=== PATIENT | female | born 1960 | race Caucasian/White ===

== ENCOUNTER → 2022-04-15 10:04 | Outpatient (BNVA) | payer BC, SELFPAY | PROVIDERS: PCP Internal Medicine; Visit Provider Nurse Practitioner Family | DX: Z13.89 Encounter for screening for other disorder (principal) ==

== ENCOUNTER 2022-10-12 14:01 | Outpatient (AMB) | payer BC, SELFPAY ==
--- NOTE | 2022-10-12 14:05 | MHC.OFFVIS ---
Intake Vital Signs 10/12/22 14:18 Height 5 ft 5 in BP 110/72 Blood Pressure Location Rt brachial Position Sitting Intake Visit Reasons: 3m follow up migraines - Confirmed Intake Note: Patient presents for 3 month follow up migraines. Patient states I haven't seen any difference my pressure is still there, sometimes I cant even touch my head. the Diclofenac helps better that the indometyhacin Allergies bacitracin [From Neosporin ([id number]-nde-npofi)] Allergy (Unknown, Verified 10/12/22 14:17) Unknown neomycin [From Neosporin ([id number])] Allergy (Unknown, Verified 10/12/22 14:17) Unknown polymyxin B [From Neosporin (jnn-clj-tzlrh)] Allergy (Unknown, Verified 10/12/22 14:17) Unknown Sulfa (Sulfonamide Antibiotics) Allergy (Unknown, Verified 10/12/22 14:17) Unknown sulfadiazine Allergy (Unknown, Verified 10/12/22 14:17) Unknown adhesive Adverse Reaction (Unknown, Verified 10/12/22 14:17) Unknown Medication List - Last Reconciled 10/12/22 by CLIFTON Silvestre albuterol sulfate 90 mcg/actuation 0 mcg inhalation alprazolam 1 mg PO BID PRN 1 day amitriptyline 100 mg PO BEDTIME budesonide-formoterol 160-4.5 mcg/actuation 2 puffs inhalation BID sehhcwdesg-icxvxfleargnn-yvvg 50-300-40 mg caps PO PRN carisoprodol 350 mg PO PRN cyclobenzaprine 5 mg PO DAILY PRN cyclosporine 0.05% (Restasis) 1 drp ophthalmic (eye) Q12H diclofenac potassium 50 mg PO TID PRN 30 days escitalopram oxalate 5 mg PO DAILY [hair volume with apple extract PO DAILY] indomethacin 50 mg PO TID PRN 30 days lorazepam 1 mg PO BID PRN magnesium oxide 400 mg PO DAILY melatonin 3 mg PO BEDTIME methocarbamol 750 - 1,500 mg PO TID PRN naproxen 500 mg PO BID PRN onabotulinumtoxinA (Botox) 200 units IM ONCE 12 weeks ondansetron 8 mg PO Q8H PRN 30 days ondansetron HCl 4 mg PO BID PRN oxycodone 5 mg PO BID PRN pantoprazole 40 mg PO DAILY riboflavin (vitamin B2) 400 mg PO DAILY simvastatin 20 mg PO BEDTIME tizanidine (Zanaflex) 4 mg PO DAILY PRN tramadol 50 mg PO BID PRN HPI HPI Comments History of Present Illness Details 62-yr-old female presents for f/u visit. Pt denies any significant interval medical changes. She reports she is having a lot of headache. 12-15 mild-mod migraine days w/ left > right pressure, or top of head, a/w some photo/phonophobia. 5 severe migraine attacks per month 5 stabbing headache days, 98% of the time left sided, 2% right sided. Using Diclofenac 1-2 x's per day on stabbing headache days. This seems more effective than Indocin 50mg. She never took the Indocin scheduled. She is using Fioricet and zofran prn severe migraine. She did not start Botox- was concerned about cost, but would like to try it now. [facility] Medical History (Updated 06/28/22 @ 13:31 by CLIFTON Silvestre) Anemia Arthritis Asthma COPD (chronic obstructive pulmonary disease) HLD (hyperlipidemia) Osteoporosis Paresthesias Surgical History H/O left wrist surgery H/O: hysterectomy Hx of appendectomy Hx of cholecystectomy Family History Paternal Aunt Parkinsons disease Father Heart disease Mother Heart disease Hypertension Social History Alcohol intake: current Alcohol intake frequency: holidays/special occasions only Patient Tobacco Use Status: Current everyday Tobacco user Review of Systems Const All systems reviewed & are unremarkable except as noted in HPI and below Physical Exam Vital Signs: Last Vital Signs BP 110/72 10/12/22 14:18 Const General: cooperative and no acute distress Orientation/consciousness: patient oriented x3 HEENT Head: Yes normocephalic Resp Effort & Inspection: normal respiratory effort and able to speak in complete sentences Neuro General: patient oriented x3, gait normal and CN's II-XI intact bilaterally Cognition (Neuro): normal cognition Motor exam (neuro): 5/5 motor strength present throughout Psych Appearance: grossly normal Mental Status: mental status grossly normal Speech and movement: Normal speech and movement present Affect: normal affect Attitude: cooperative Thought process: Normal thought process present Thought content: Normal thought content present Insight: Good insight present (Psych) Judgement: Good judgement present (Psych) Assessment & Plan Assessment & Plan (1) Stabbing headache: Comment: w/o autonomic s/s Code(s): G44.85 - Primary stabbing headache (2) Chronic migraine without aura: Code(s): G43.709 - Chronic migraine without aura, not intractable, without status migrainosus Plan For stabbing headache: Brain/head MRA was denied, will rerequest as brain MRI did not reveal any etiologies that would cause a primarily unilateral stabbing headache, to assess for any central etiologies (such as vascular, cranial nerve compression) of stabbing headache. Continue Diclofenac 50mg up to tid prn. For acute migraine headache treatment: May continue Fioricet prn for now- use sparingly. Continue Zofran to 8mg ODT prn N?V May adjunct w/ Benadryl 25-50mg q 6-8hrs prn. Pt previoulsy requested Fioicet w/ Codeine- however I am not comfortable resuming this as it would significantly increase pt's risk for medication adaptation headache. Previous acute migraine medication trials: Sumatriptan, Zolmitriptan, Eletriptan- caused racing heart rate. Acute migraine medication contraindications: None at this time. Future considerations- gepant- however would need to wean off Fioricet. ? For migraine headache prevention medication: Continue Riboflavin 400mg qam Continue Magnesium 400mg qhs Continue Amitriptyline 100mg qhs. Pt is advised to start Botox 155 units IM q 12 weeks. (CPT 33338) Previous migraine prevention medication trials: Emgality- x's 2 months- had 2 week post-injection headache. Topiramate, Propranolol, Depakote, Gabapentin- ineffective. Nortriptyline worsened headache. Migraine prevention medication contraindications: Would avoid Aimovig d/t h/o constipation. ? Monitor tremors clinically for now. ? F/u in 3-4 months or sooner prn. Coding Level of Care Code Est Pt Level 4 (39666) Diagnoses Stabbing headache G44.85 Chronic migraine without aura G43.709
[2022-10-12 14:18] VITALS: BP 110/72
== END 2022-10-12 15:02 | disposition home or self-care (01) ==
PROVIDERS: Visit Provider Nurse Practitioner Family
DX: G44.85 Primary stabbing headache (principal); G43.709 Chronic migraine without aura, not intractable, without status migrainosus
CPT/HCPCS: 99214

== ENCOUNTER 2022-11-01 12:59 | Outpatient (AMB) | payer BC, SELFPAY ==
--- NOTE | 2022-11-01 13:06 | MHC.OFFVIS ---
Intake Vital Signs 11/01/22 13:07 Height 5 ft 5 in Weight 104 lb 6 oz BMI 17.4 BP 98/70 Blood Pressure Location Rt brachial Position Sitting Pulse 100 Pulse Source Pulse Oximeter Pulse Oximetry (%) 98 Oxygen Delivery Method Room Air Intake Visit Reasons: Botox (B&B)-CONFIRMED Intake Note: Pt is here today for botox for migraines Allergies bacitracin [From Neosporin ([id number]-[id number])] Allergy (Unknown, Verified 11/01/22 13:10) Unknown neomycin [From Neosporin ([id number]-kwm-grdwm)] Allergy (Unknown, Verified 11/01/22 13:10) Unknown polymyxin B [From Neosporin (ert-pij-lrron)] Allergy (Unknown, Verified 11/01/22 13:10) Unknown Sulfa (Sulfonamide Antibiotics) Allergy (Unknown, Verified 11/01/22 13:10) Unknown sulfadiazine Allergy (Unknown, Verified 11/01/22 13:10) Unknown adhesive Adverse Reaction (Unknown, Verified 11/01/22 13:10) Unknown Medication List - Last Reconciled 11/01/22 by Hanna Garcia MD albuterol sulfate 90 mcg/actuation 0 mcg inhalation alprazolam 1 mg PO BID PRN 1 day amitriptyline 100 mg PO BEDTIME budesonide-formoterol 160-4.5 mcg/actuation 2 puffs inhalation BID gtaaepypec-tthsslocqfvoy-myhh 50-300-40 mg caps PO PRN carisoprodol 350 mg PO PRN cyclobenzaprine 5 mg PO DAILY PRN cyclosporine 0.05% (Restasis) 1 drp ophthalmic (eye) Q12H diclofenac potassium 50 mg PO TID PRN 30 days escitalopram oxalate 5 mg PO DAILY [hair volume with apple extract PO DAILY] indomethacin 50 mg PO TID PRN 30 days lorazepam 1 mg PO BID PRN magnesium oxide 400 mg PO DAILY melatonin 3 mg PO BEDTIME methocarbamol 750 - 1,500 mg PO TID PRN naproxen 500 mg PO BID PRN onabotulinumtoxinA (Botox) 200 units IM ONCE 12 weeks ondansetron 8 mg PO Q8H PRN 30 days ondansetron HCl 4 mg PO BID PRN oxycodone 5 mg PO BID PRN pantoprazole 40 mg PO DAILY riboflavin (vitamin B2) 400 mg PO DAILY simvastatin 20 mg PO BEDTIME tizanidine (Zanaflex) 4 mg PO DAILY PRN tramadol 50 mg PO BID PRN HPI HPI Comments History of Present Illness Details ? 62y/o female comes for treatment of migraines with botox. ??? Most frequent reported adverse reactions following injection of botox for chronic migraine include neck pain (9%), headache(5%), eyelid ptosis(4%), migraine(4%), muscular weakness(4%), musculuskeletal stiffness(4%), bronchitis(3%), injection site pain (3%), musculoskeletal pain(3%), myalgia(3%), facial paresis(2%), HTN(2%) and muscle spasms(2%) were discussed in detail. ??? Botulinum toxin typeA 200units Lot no [id number] expiration Mar 2025 was diluted with 4 cc of normal saline . ??? Muscles injected- ??? Frontalis 4 sites ??? Procerus 1 site ??? Exhaust Machine Operator- 2 sites ??? Temporalis- 8 sites ??? Occipitalis- 6 sites ??? Cervical paraspinals- 4 sites ??? Trapezius- 6 sites- units each ??? 5 units each in 31 site ??? Total use- 155units ??? Discarded-45units [facility] Medical History Arthritis HLD (hyperlipidemia) Osteoporosis Asthma COPD (chronic obstructive pulmonary disease) Anemia Paresthesias Surgical History H/O left wrist surgery H/O: hysterectomy Hx of cholecystectomy Hx of appendectomy Family History Paternal Aunt Parkinsons disease Father Heart disease Mother Heart disease Hypertension Social History Alcohol intake: current Alcohol intake frequency: holidays/special occasions only Patient Tobacco Use Status: Current everyday Tobacco user Physical Exam Vital Signs: Last Vital Signs Pulse 100 11/01/22 13:07 BP 98/70 11/01/22 13:07 Pulse Ox 98 11/01/22 13:07 Oxygen Delivery Method Room Air 11/01/22 13:07 BMI result Body Mass Index 17.4 Const General: cooperative and no acute distress Orientation/consciousness: patient oriented x3 HEENT Head: Yes normocephalic Resp Effort & Inspection: normal respiratory effort and able to speak in complete sentences Neuro General: patient oriented x3, gait normal and CN's II-XI intact bilaterally Cognition (Neuro): normal cognition Motor exam (neuro): 5/5 motor strength present throughout Psych Appearance: grossly normal Mental Status: mental status grossly normal Speech and movement: Normal speech and movement present Affect: normal affect Attitude: cooperative Thought process: Normal thought process present Thought content: Normal thought content present Insight: Good insight present (Psych) Judgement: Good judgement present (Psych) Office Procedures Botulinum toxin Injection 26469 - Migraine Procedure code (CPT) selection complete Office Meds onabotulinumtoxinA 200 unit solution for injection Performing Provider: Hanna Garcia MD Performing Location: [facility] [place] Administered by: Hanna Garcia MD on 11/01/22 13:33 Dose Route Admin Location Dispensed Lot Number Expiration Date [facility] [employer] 155 unit subcut 200 units [id number] 03/16/25 5251-0672-82 [employer]/BOTOX Comments: see hpi Assessment & Plan Assessment & Plan (1) Chronic migraine without aura: Code(s): G43.709 - Chronic migraine without aura, not intractable, without status migrainosus Plan Patient tolerated the procedure well she will call with any side effects Orders: Orders AMB Botulinum toxin Injection Today G43.709 - Chronic migraine without aura, not intractable, without status migrainosus Coding Level of Care Code Est Pt Level 1 (23506) Diagnoses Chronic migraine without aura G43.709 CPT Codes Botox Injection - Botox 3: 42467 - Migraine ([id number])
[2022-11-01 13:07] VITALS: BP 98/70; PULSE 100; O2SAT 98; BMI 17.4
== END 2022-11-01 13:25 | disposition home or self-care (01) ==
PROVIDERS: PCP Internal Medicine; Visit Provider Psychiatry & Neurology Neurology
DX: G43.709 Chronic migraine without aura, not intractable, without status migrainosus (principal)
CPT/HCPCS: 64615

== ENCOUNTER → 2022-11-01 12:59 | Outpatient (BNVA) | payer BC, SELFPAY | PROVIDERS: PCP Internal Medicine; Visit Provider Psychiatry & Neurology Neurology | DX: G43.709 Chronic migraine without aura, not intractable, without status migrainosus (principal) | CPT/HCPCS: 64615; 99211; J0585 ==

== ENCOUNTER 2023-01-25 14:02 | Outpatient (AMB) | payer BC, SELFPAY ==
--- NOTE | 2023-01-25 14:04 | MHC.OFFVIS ---
Intake Vital Signs 01/25/23 14:05 Height 5 ft 5 in Weight 112 lb 4 oz BMI 18.7 BP 102/70 Blood Pressure Location Rt brachial Position Sitting Pulse 87 Pulse Source Pulse Oximeter Pulse Oximetry (%) 99 Oxygen Delivery Method Room Air Intake Visit Reasons: 3m follow up migraines-Confirmed Intake Note: Patient presents for 3 month follow up migraines. The botox has been a blessing Allergies bacitracin [From Neosporin ([id number]-wyo-[id number])] Allergy (Unknown, Verified 01/25/23 14:06) Unknown neomycin [From Neosporin (jvt-ypn-ffxqe)] Allergy (Unknown, Verified 01/25/23 14:06) Unknown polymyxin B [From Neosporin (rbi-ypi-lofsv)] Allergy (Unknown, Verified 01/25/23 14:06) Unknown Sulfa (Sulfonamide Antibiotics) Allergy (Unknown, Verified 01/25/23 14:06) Unknown sulfadiazine Allergy (Unknown, Verified 01/25/23 14:06) Unknown adhesive Adverse Reaction (Unknown, Verified 01/25/23 14:06) Unknown Medication List - Last Reconciled 01/25/23 by CLIFTON Silvestre albuterol sulfate 90 mcg/actuation 0 mcg inhalation alprazolam 1 mg PO BID PRN 1 day amitriptyline 100 mg PO BEDTIME budesonide-formoterol 160-4.5 mcg/actuation 2 puffs inhalation BID naveqqjpgy-uprspllkrljph-ovxb 50-300-40 mg caps PO PRN carisoprodol 350 mg PO PRN cyclobenzaprine 5 mg PO DAILY PRN cyclosporine 0.05% (Restasis) 1 drp ophthalmic (eye) Q12H diclofenac potassium 50 mg PO TID PRN 30 days escitalopram oxalate 5 mg PO DAILY [hair volume with apple extract PO DAILY] indomethacin 50 mg PO TID PRN 30 days lorazepam 1 mg PO BID PRN magnesium oxide 400 mg PO DAILY melatonin 3 mg PO BEDTIME methocarbamol 750 - 1,500 mg PO TID PRN naproxen 500 mg PO BID PRN onabotulinumtoxinA (Botox) 200 units IM ONCE 12 weeks ondansetron 8 mg PO Q8H PRN 30 days ondansetron HCl 4 mg PO BID PRN oxycodone 5 mg PO BID PRN pantoprazole 40 mg PO DAILY riboflavin (vitamin B2) 400 mg PO DAILY simvastatin 20 mg PO BEDTIME tizanidine (Zanaflex) 4 mg PO DAILY PRN tramadol 50 mg PO BID PRN HPI HPI Comments History of Present Illness Details 62-yr-old female presents for f/u visit. Pt endorses the following interval medical history changes: A Covid-19 infection in early fall- since her sense of taste is still off and she still feel some brain fog. Prior to starting Botox for chronic migraine: Approx 8 migraine days per month with 20 pressure headache/stabbing headaches day per month. Since starting Botox in Sep: She is having less migraines overall. She has had 1-2 migraine days per month. Pt reports she had 1 major migraine last month- though not a/w vomiting- where she needed to take 4 Fioricet in 1 day. She continues to have stabbing/pressure headaches- now 4-5 times a week. The stabbing/pressure headache is in left parietal region 85% of the time, but right parietal the other 15%- it usually lasts 30 seconds may come and go a few times and as long as 2 days- more rarely is persists constantly x's 2 days. Possibly triggered by doing cross stitch, dry eyes, light/prism exposure especially from 1 of her household door windows. She finds the Diclofenac to be more helpful for these mores pressure/stabbing headache. Using her Restasis, and eye drops. The Indomethacin was not as helpful. [facility] Medical History Arthritis HLD (hyperlipidemia) Osteoporosis Asthma COPD (chronic obstructive pulmonary disease) Anemia Paresthesias Surgical History H/O left wrist surgery H/O: hysterectomy Hx of cholecystectomy Hx of appendectomy Family History Paternal Aunt Parkinsons disease Father Heart disease Mother Heart disease Hypertension Social History Alcohol intake: current Alcohol intake frequency: holidays/special occasions only Patient Tobacco Use Status: Current everyday Tobacco user Review of Systems Const All systems reviewed & are unremarkable except as noted in HPI and below Physical Exam Vital Signs: Last Vital Signs Pulse 87 01/25/23 14:05 BP 102/70 01/25/23 14:05 Pulse Ox 99 01/25/23 14:05 Oxygen Delivery Method Room Air 01/25/23 14:05 BMI result Body Mass Index 18.7 Const General: cooperative and no acute distress Orientation/consciousness: patient oriented x3 HEENT Head: Yes normocephalic Resp Effort & Inspection: normal respiratory effort and able to speak in complete sentences Neuro General: patient oriented x3, gait normal and CN's II-XI intact bilaterally Cognition (Neuro): normal cognition Motor exam (neuro): 5/5 motor strength present throughout Psych Appearance: grossly normal Mental Status: mental status grossly normal Speech and movement: Normal speech and movement present Affect: normal affect Attitude: cooperative Thought process: Normal thought process present Thought content: Normal thought content present Insight: Good insight present (Psych) Judgement: Good judgement present (Psych) Assessment & Plan Assessment & Plan (1) Stabbing headache: Comment: w/o autonomic s/s Code(s): G44.85 - Primary stabbing headache (2) HLD (hyperlipidemia): Code(s): E78.5 - Hyperlipidemia, unspecified (3) Chronic migraine without aura: Code(s): G43.709 - Chronic migraine without aura, not intractable, without status migrainosus Plan For stabbing headache: Brain/head MRA. will request as brain MRI did not reveal any etiologies that would cause a primarily unilateral stabbing headache, to assess for any central etiologies (such as vascular, cranial nerve compression) of stabbing headache. Continue Diclofenac 50mg up to tid prn. For acute migraine headache treatment: May continue Fioricet prn for now- use sparingly. Continue Zofran to 8mg ODT prn N?V May adjunct w/ Benadryl 25-50mg q 6-8hrs prn. Pt previoulsy requested Fioicet w/ Codeine- however I am not comfortable resuming this as it would significantly increase pt's risk for medication adaptation headache. Previous acute migraine medication trials: Sumatriptan, Zolmitriptan, Eletriptan- caused racing heart rate. Acute migraine medication contraindications: None at this time. Future considerations- gepant- however would need to wean off Fioricet. ? For migraine headache prevention medication: Continue Riboflavin 400mg qam Continue Magnesium 400mg qhs Continue Amitriptyline 100mg qhs. Continue Botox 155 units IM q 12 weeks (CPT 13485), as pt is already having good clinical effect. Previous migraine prevention medication trials: Emgality- x's 2 months- had 2 week post-injection headache. Topiramate, Propranolol, Depakote, Gabapentin- ineffective. Nortriptyline worsened headache. Migraine prevention medication contraindications: Would avoid Aimovig d/t h/o constipation. ? Monitor tremors clinically for now. ? F/u in 3-4 months or sooner prn. Orders: Orders MR angio head wo con Today E78.5 - Hyperlipidemia, unspecified, G44.85 - Primary stabbing headache, Z72.0 - Tobacco use Coding Level of Care Code Est Pt Level 4 (95814) Diagnoses Stabbing headache G44.85 HLD (hyperlipidemia) E78.5 Chronic migraine without aura G43.703
[2023-01-25 14:05] VITALS: BP 102/70; PULSE 87; O2SAT 99; BMI 18.7
== END 2023-01-25 14:59 | disposition home or self-care (01) ==
PROVIDERS: PCP Internal Medicine; Visit Provider Nurse Practitioner Family
DX: G44.85 Primary stabbing headache (principal); E78.5 Hyperlipidemia, unspecified; G43.709 Chronic migraine without aura, not intractable, without status migrainosus
CPT/HCPCS: 99214

== ENCOUNTER 2023-02-01 10:54 | Outpatient (AMB) | payer BC, SELFPAY ==
--- NOTE | 2023-02-01 10:59 | A.OFFVIS_ITS ---
Intake Vital Signs 02/01/23 11:00 Height 5 ft 5 in Weight 111 lb 8 oz BMI 18.6 BP 112/68 Blood Pressure Location Lt brachial Position Sitting Respiration 18 Pulse 91 Pulse Source Pulse Oximeter Pulse Oximetry (%) 98 Oxygen Delivery Method Room Air Intake Visit Reasons: Botox (B&B)-Confirmed Intake Note: Pt presents to the office for Botox injections. Preschool Director Required: No Allergies bacitracin [From Neosporin (akt-wah-kowej)] Allergy (Unknown, Verified 02/01/23 11:00) Unknown neomycin [From Neosporin (kaz-rcx-btnyo)] Allergy (Unknown, Verified 02/01/23 11:00) Unknown polymyxin B [From Neosporin (uhs-yiu-yduhs)] Allergy (Unknown, Verified 02/01/23 11:00) Unknown Sulfa (Sulfonamide Antibiotics) Allergy (Unknown, Verified 02/01/23 11:00) Unknown sulfadiazine Allergy (Unknown, Verified 02/01/23 11:00) Unknown adhesive Adverse Reaction (Unknown, Verified 02/01/23 11:00) Unknown Medication List - Last Reconciled 02/02/23 by Hanna Garcia MD albuterol sulfate 90 mcg/actuation 0 mcg inhalation alprazolam 1 mg PO BID PRN 1 day amitriptyline 100 mg PO BEDTIME budesonide-formoterol 160-4.5 mcg/actuation 2 puffs inhalation BID tmsjiljwll-ioqifktlgpdop-kbgn 50-300-40 mg caps PO PRN carisoprodol 350 mg PO PRN cyclobenzaprine 5 mg PO DAILY PRN cyclosporine 0.05% (Restasis) 1 drp ophthalmic (eye) Q12H diclofenac potassium 50 mg PO TID PRN 30 days escitalopram oxalate 5 mg PO DAILY [hair volume with apple extract PO DAILY] indomethacin 50 mg PO TID PRN 30 days lorazepam 1 mg PO BID PRN magnesium oxide 400 mg PO DAILY melatonin 3 mg PO BEDTIME methocarbamol 750 - 1,500 mg PO TID PRN naproxen 500 mg PO BID PRN onabotulinumtoxinA (Botox) 200 units IM ONCE 12 weeks ondansetron 8 mg PO Q8H PRN 30 days ondansetron HCl 4 mg PO BID PRN oxycodone 5 mg PO BID PRN pantoprazole 40 mg PO DAILY riboflavin (vitamin B2) 400 mg PO DAILY simvastatin 20 mg PO BEDTIME tizanidine (Zanaflex) 4 mg PO DAILY PRN tramadol 50 mg PO BID PRN HPI HPI Comments History of Present Illness Details ? 62y/o female comes for treatment of migraines with botox. How many migraine days prior to botox- 20 days a month How long do the migraines last- 1-2 days Intensity of migrainesevere 8-10/23 ER visits related to migraine- none Effectiveness of botox from last two treatment(s) How many migraine days since receiving treatment: Change? in intensity of migraine?decreased Change in frequency of migraine?decreased Change in use of acute medication for migraine?decreased use Change in quality of life?improved ER visits related to migraine?none Have at least three months elapsed since last treatment (Last botox date - frequency of injections)11/01/22 ??? Most frequent reported adverse reactions following injection of botox for chronic migraine include neck pain (9%), headache(5%), eyelid ptosis(4%), migraine(4%), muscular weakness(4%), musculuskeletal stiffness(4%), bronchitis(3%), injection site pain (3%), musculoskeletal pain(3%), myalgia(3%), facial paresis(2%), HTN(2%) and muscle spasms(2%) were discussed in detail. ??? Botulinum toxin typeA 200units Lot no [id number] expiration May 2025 was diluted with 4 cc of normal saline . ??? Muscles injected- ??? Frontalis 4 sites ??? Procerus 1 site ??? Dispatcher Street Department- 2 sites ??? Temporalis- 8 sites ??? Occipitalis- 6 sites ??? Cervical paraspinals- 4 sites ??? Trapezius- 6 sites- units each ??? 5 units each in 31 site ??? Total use- 155units ??? Discarded-45units [facility] Medical History Arthritis HLD (hyperlipidemia) Osteoporosis Asthma COPD (chronic obstructive pulmonary disease) Anemia Paresthesias Surgical History H/O left wrist surgery H/O: hysterectomy Hx of cholecystectomy Hx of appendectomy Family History Paternal Aunt Parkinsons disease Father Heart disease Mother Heart disease Hypertension Social History Alcohol intake: current Alcohol intake frequency: holidays/special occasions only Patient Tobacco Use Status: Current everyday Tobacco user Physical Exam Vital Signs: Last Vital Signs Pulse 91 02/01/23 11:00 Resp 18 02/01/23 11:00 BP 112/68 02/01/23 11:00 Pulse Ox 98 02/01/23 11:00 Oxygen Delivery Method Room Air 02/01/23 11:00 BMI result Body Mass Index 18.6 Const General: cooperative and no acute distress Orientation/consciousness: patient oriented x3 HEENT Head: Yes normocephalic Resp Effort & Inspection: normal respiratory effort and able to speak in complete sentences Neuro General: patient oriented x3, gait normal and CN's II-XI intact bilaterally Cognition (Neuro): normal cognition Motor exam (neuro): 5/5 motor strength present throughout Psych Appearance: grossly normal Mental Status: mental status grossly normal Speech and movement: Normal speech and movement present Affect: normal affect Attitude: cooperative Thought process: Normal thought process present Thought content: Normal thought content present Insight: Good insight present (Psych) Judgement: Good judgement present (Psych) Office Procedures Botulinum toxin Injection 58426 - Migraine Procedure code (CPT) selection complete Office Meds onabotulinumtoxinA 200 unit solution for injection Performing Provider: Hanna Garcia MD Performing Location: [facility] [place] [facility] Administered by: Hanna Garcia MD on 02/02/23 15:58 Dose Route Admin Location Dispensed Lot Number Expiration Date [facility] Entry Level Truck Driver 155 unit IM 200 units [id number] 05/14/25 3595-5205-70 ALLERGAN/BOTOX Comments: see HPI Assessment & Plan Assessment & Plan (1) Chronic migraine without aura: Code(s): G43.709 - Chronic migraine without aura, not intractable, without status migrainosus Plan Patient tolerated the procedure well she will call with any side effects Orders: Orders AMB Botulinum toxin Injection 02/01/23 G43.709 - Chronic migraine without aura, not intractable, without status migrainosus Coding Level of Care Code Est Pt Level 1 (42669) Diagnoses Chronic migraine without aura G43.709 CPT Codes Botox Injection - Botox 3: 66642 - Migraine ([id number])
[2023-02-01 11:00] VITALS: BP 112/68; PULSE 91; RESP 18; O2SAT 98; BMI 18.6
== END 2023-02-01 11:17 | disposition home or self-care (01) ==
PROVIDERS: PCP Internal Medicine; Visit Provider Psychiatry & Neurology Neurology
DX: G43.709 Chronic migraine without aura, not intractable, without status migrainosus (principal)
CPT/HCPCS: 64615

== ENCOUNTER → 2023-02-01 10:54 | Outpatient (BNVA) | payer BC, SELFPAY | PROVIDERS: PCP Internal Medicine; Visit Provider Psychiatry & Neurology Neurology | DX: G43.709 Chronic migraine without aura, not intractable, without status migrainosus (principal) | CPT/HCPCS: 64615; 99211; J0585 ==

== ENCOUNTER 2023-04-26 13:26 | Outpatient (AMB) | payer OTHER, SELFPAY ==
--- NOTE | 2023-04-26 13:33 | A.OFFVIS_ITS ---
Intake Vital Signs 04/26/23 13:34 Height 5 ft 5 in Weight 113 lb BMI 18.8 BP 106/74 Blood Pressure Location Rt brachial Position Sitting Pulse 84 Pulse Source Pulse Oximeter Pulse Oximetry (%) 99 Oxygen Delivery Method Room Air Intake Visit Reasons: 3 mo f/u -Migraines-Conf Intake Note: Patient presents for follow up. patient still having the pain in her head. Allergies bacitracin [From Neosporin (fdi-luh-eokng)] Allergy (Unknown, Verified 05/03/23 10:44) Unknown neomycin [From Neosporin (gfq-xlw-zwuhj)] Allergy (Unknown, Verified 05/03/23 10:44) Unknown polymyxin B [From Neosporin (sil-zzg-kxrsp)] Allergy (Unknown, Verified 05/03/23 10:44) Unknown Sulfa (Sulfonamide Antibiotics) Allergy (Unknown, Verified 05/03/23 10:44) Unknown sulfadiazine Allergy (Unknown, Verified 05/03/23 10:44) Unknown adhesive Adverse Reaction (Unknown, Verified 05/03/23 10:44) Unknown HPI HPI Comments History of Present Illness Details 62-yr-old female presents for f/u visit. Pt denies any significant interval medical changes. Pt reports she is having 1 migraine day per week, which lasts a few hours. Needs to rest in a dark quiet place. She continues to have stabbing pain, now behind the left eye and crown of crown, locations vary, severe, lasts 10 seconds to hours, occurring 1-2 days per week. Not a/w red eyes, watery eyes, facial droop. She is very photophobic. Baseline migraine headache characteristics: top of head, pressure. A/w photophobia, phonophobia, osmophobia. N/V, dizziness, may see black spots. No paresthesias, focal weakness, autonomic features. She is more prone to migraine in the spring and fall, as well as barometric changes. [facility] Medical History Arthritis HLD (hyperlipidemia) Osteoporosis Asthma COPD (chronic obstructive pulmonary disease) Anemia Paresthesias Surgical History H/O left wrist surgery H/O: hysterectomy Hx of cholecystectomy Hx of appendectomy Family History Paternal Aunt Parkinsons disease Father Heart disease Mother Heart disease Hypertension Social History Alcohol intake: current Alcohol intake frequency: holidays/special occasions only Patient Tobacco Use Status: Current everyday Tobacco user Physical Exam Vital Signs: Last Vital Signs Pulse 84 04/26/23 13:34 BP 106/74 04/26/23 13:34 Pulse Ox 99 04/26/23 13:34 Oxygen Delivery Method Room Air 04/26/23 13:34 BMI result Body Mass Index 18.8 Const General: cooperative and no acute distress Orientation/consciousness: patient oriented x3 Resp Effort & Inspection: normal respiratory effort and able to speak in complete sentences Neuro General: patient oriented x3 Cranial nerves: Yes CN's II-XII intact bilaterally Cognition (Neuro): normal cognition Psych Appearance: grossly normal Mental Status: mental status grossly normal Speech and movement: Normal speech and movement present Affect: normal affect Attitude: cooperative Assessment & Plan Assessment & Plan (1) Chronic migraine without aura: Code(s): G43.709 - Chronic migraine without aura, not intractable, without status migrainosus (2) Tremors of nervous system: Code(s): R25.1 - Tremor, unspecified (3) Stabbing headache: Comment: w/o autonomic s/s Code(s): G44.85 - Primary stabbing headache Plan For stabbing headache: Brain/head MRA- completed peer to peer- was denied by insurance Continue Diclofenac 50mg up to tid prn. Previous trials- Indomethacin- not as helpful. ? For acute migraine headache treatment: May continue Fioricet prn for now- use sparingly. Continue Zofran to 8mg ODT prn N?V May adjunct w/ Benadryl 25-50mg q 6-8hrs prn. Pt previously requested Fioicet w/ Codeine- however I am not comfortable resuming this as it would significantly increase pt's risk for medication adaptation headache. Previous acute migraine medication trials: Sumatriptan, Zolmitriptan, Eletriptan- caused racing heart rate. Acute migraine medication contraindications: None at this time. Future considerations- gepant- however would need to wean off Fioricet. ? For migraine headache prevention medication: Continue Riboflavin 400mg qam Continue Magnesium 400mg qhs Continue Amitriptyline 100mg qhs. Continue Botox 155 units IM q 12 weeks (CPT 15738), as pt is already having good clinical effect. Previous migraine prevention medication trials: Emgality- x's 2 months- had 2 week post-injection headache. Topiramate, Propranolol, Depakote, Gabapentin- ineffective. Nortriptyline worsened headache. Migraine prevention medication contraindications: Would avoid Aimovig d/t h/o constipation. ? Monitor tremors clinically for now. ? F/u in 6 months or sooner prn. Coding Level of Care Code Est Pt Level 4 (41023) Diagnoses Chronic migraine without aura G43.709 Tremors of nervous system R25.1 Stabbing headache G44.85
[2023-04-26 13:34] VITALS: BP 106/74; PULSE 84; O2SAT 99; BMI 18.8
== END 2023-04-26 14:31 | disposition home or self-care (01) ==
PROVIDERS: PCP Internal Medicine; Visit Provider Nurse Practitioner Family
DX: G43.709 Chronic migraine without aura, not intractable, without status migrainosus (principal); R25.1 Tremor, unspecified; G44.85 Primary stabbing headache
CPT/HCPCS: 99214

== ENCOUNTER 2023-05-03 10:33 | Outpatient (AMB) | payer OTHER, SELFPAY ==
--- NOTE | 2023-05-03 10:44 | A.OFFVIS_ITS ---
Intake Vital Signs 05/03/23 10:49 Height 5 ft 5 in Weight 114 lb BMI 19.0 BP 106/60 Blood Pressure Location Rt brachial Position Sitting Respiration 16 Pulse 98 Pulse Source Pulse Oximeter Pulse Oximetry (%) 100 Oxygen Delivery Method Room Air Intake Visit Reasons: Botox (B&B)-CONF Intake Note: Pt presents to the office for Botox injections. Machine Heel Sprayer Required: No Allergies bacitracin [From Neosporin (ndc-lfb-rzhof)] Allergy (Unknown, Verified 05/03/23 10:44) Unknown neomycin [From Neosporin (bmm-fcb-iluss)] Allergy (Unknown, Verified 05/03/23 10:44) Unknown polymyxin B [From Neosporin (col-mcx-dthlw)] Allergy (Unknown, Verified 05/03/23 10:44) Unknown Sulfa (Sulfonamide Antibiotics) Allergy (Unknown, Verified 05/03/23 10:44) Unknown sulfadiazine Allergy (Unknown, Verified 05/03/23 10:44) Unknown adhesive Adverse Reaction (Unknown, Verified 05/03/23 10:44) Unknown Medication List - Last Reconciled 05/03/23 by Hanna Gracia MD albuterol sulfate 90 mcg/actuation 0 mcg inhalation alprazolam 1 mg PO BID PRN 1 day amitriptyline 100 mg PO BEDTIME budesonide-formoterol 160-4.5 mcg/actuation 2 puffs inhalation BID sqqtbovkqn-imzixtmxxpeqy-dpyh 50-300-40 mg caps PO PRN carisoprodol 350 mg PO PRN celecoxib mg PO BID cyclobenzaprine 5 mg PO DAILY PRN cyclosporine 0.05% (Restasis) 1 drp ophthalmic (eye) Q12H diclofenac potassium 50 mg PO TID PRN 30 days escitalopram oxalate 5 mg PO DAILY [hair volume with apple extract PO DAILY] indomethacin 50 mg PO TID PRN 30 days lorazepam 1 mg PO BID PRN magnesium oxide 400 mg PO DAILY melatonin 3 mg PO BEDTIME methocarbamol 750 - 1,500 mg PO TID PRN naproxen 500 mg PO BID PRN onabotulinumtoxinA (Botox) 200 units IM ONCE 12 weeks ondansetron 8 mg PO Q8H PRN 30 days ondansetron HCl 4 mg PO BID PRN oxycodone 5 mg PO BID PRN pantoprazole 40 mg PO DAILY riboflavin (vitamin B2) 400 mg PO DAILY simvastatin 20 mg PO BEDTIME tizanidine (Zanaflex) 4 mg PO DAILY PRN tramadol 50 mg PO BID PRN HPI HPI Comments History of Present Illness Details ? 62y/o female comes for treatment of migraines with botox. How many migraine days prior to botox- 20 days a month How long do the migraines last- 1-2 days Intensity of migrainesevere 8-10/23 ER visits related to migraine- none Effectiveness of botox from last two treatment(s) How many migraine days since receiving treatment: Change? in intensity of migraine?decreased Change in frequency of migraine?decreased Change in use of acute medication for migraine?decreased use Change in quality of life?improved ER visits related to migraine?none Have at least three months elapsed since last treatment (Last botox date - frequency of injections)11/01/22 ??? Most frequent reported adverse reactions following injection of botox for chronic migraine include neck pain (9%), headache(5%), eyelid ptosis(4%), migraine(4%), muscular weakness(4%), musculuskeletal stiffness(4%), bronc hitis(3%), injection site pain (3%), musculoskeletal pain(3%), myalgia(3%), facial paresis(2%), HTN(2%) and muscle spasms(2%) were discussed in detail. A ??? Botulinum toxin typeA 200units Lot no [id number] expiration July 2025 was diluted with 4 cc of normal saline . ??? Muscles injected- ??? Frontalis 4 sites ??? Procerus 1 site ??? Re Recording Mixer- 2 sites ??? Temporalis- 8 sites ??? Occipitalis- 6 sites ??? Cervical paraspinals- 4 sites ??? Trapezius- 6 sites- units each ??? 5 units each in 31 site ??? Total use- 155units ??? Discarded-45units [facility] Medical History Arthritis HLD (hyperlipidemia) Osteoporosis Asthma COPD (chronic obstructive pulmonary disease) Anemia Paresthesias Surgical History H/O left wrist surgery H/O: hysterectomy Hx of cholecystectomy Hx of appendectomy Family History Paternal Aunt Parkinsons disease Father Heart disease Mother Heart disease Hypertension Social History Alcohol intake: current Alcohol intake frequency: holidays/special occasions only Patient Tobacco Use Status: Current everyday Tobacco user Physical Exam Vital Signs: Last Vital Signs Pulse 98 05/03/23 10:49 Resp 16 05/03/23 10:49 BP 106/60 05/03/23 10:49 Pulse Ox 100 05/03/23 10:49 Oxygen Delivery Method Room Air 05/03/23 10:49 BMI result Body Mass Index 19.0 Const General: cooperative and no acute distress Orientation/consciousness: patient oriented x3 HEENT Head: Yes normocephalic Resp Effort & Inspection: normal respiratory effort and able to speak in complete sentences Neuro General: patient oriented x3, gait normal and CN's II-XI intact bilaterally Cognition (Neuro): normal cognition Motor exam (neuro): 5/5 motor strength present throughout Psych Appearance: grossly normal Mental Status: mental status grossly normal Speech and movement: Normal speech and movement present Affect: normal affect Attitude: cooperative Thought process: Normal thought process present Thought content: Normal thought content present Insight: Good insight present (Psych) Judgement: Good judgement present (Psych) Office Procedures Botulinum toxin Injection 70557 - Migraine Procedure code (CPT) selection complete Office Meds onabotulinumtoxinA 200 unit solution for injection Performing Provider: Hanna Garcia MD Performing Location: [facility] [place] [facility] Administered by: Hanna Garcia MD on 05/03/23 11:13 Dose Route Admin Location Dispensed Lot Number Expiration Date [facility] Automatic Winder Operator 155 unit subcut 200 units [id number] 07/14/25 0582-7002-32 ALLERGAN/BOTOX Comments: see HPI Assessment & Plan Assessment & Plan (1) Chronic migraine without aura: Code(s): G43.709 - Chronic migraine without aura, not intractable, without status migrainosus Plan Patient tolerated the procedure well she will call with any side effects Orders: Orders AMB Botulinum toxin Injection Today G43.709 - Chronic migraine without aura, not intractable, without status migrainosus Coding Level of Care Code Est Pt Level 1 (35308) Diagnoses Chronic migraine without aura G43.709 CPT Codes Botox Injection - Botox 3: 25338 - Migraine ([id number])
[2023-05-03 10:49] VITALS: BP 106/60; PULSE 98; RESP 16; O2SAT 100; BMI 19.0
== END 2023-05-03 11:05 | disposition home or self-care (01) ==
PROVIDERS: PCP Internal Medicine; Visit Provider Psychiatry & Neurology Neurology
DX: G43.709 Chronic migraine without aura, not intractable, without status migrainosus (principal)
CPT/HCPCS: 64615

== ENCOUNTER → 2023-05-03 10:45 | Outpatient (BNVA) | payer OTHER, SELFPAY | PROVIDERS: PCP Internal Medicine; Visit Provider Psychiatry & Neurology Neurology | DX: G43.709 Chronic migraine without aura, not intractable, without status migrainosus (principal) | CPT/HCPCS: 64615; 99211; J0585 ==

== ENCOUNTER 2023-08-03 10:37 | Outpatient (AMB) | payer OTHER, SELFPAY ==
--- NOTE | 2023-08-03 10:38 | MHC.OFFVIS ---
Vital Signs 08/03/23 10:39 Height 5 ft 5 in Weight 111 lb 8 oz BMI 18.6 BP 110/70 Blood Pressure Location Rt brachial Position Sitting Respiration 16 Pulse 104 H Pulse Source Pulse Oximeter Pulse Oximetry (%) 97 Oxygen Delivery Method Room Air Intake Visit Reasons: Botox - Confirmed Intake Note: Pt presents to the office for Botox injections. Review Trainer Required: No Allergies bacitracin [From Neosporin (lfa-fur-bmhcy)] Allergy (Unknown, Verified 08/03/23 10:38) Unknown neomycin [From Neosporin (yhb-okc-yphbe)] Allergy (Unknown, Verified 08/03/23 10:38) Unknown polymyxin B [From Neosporin (ppw-gxp-eupnm)] Allergy (Unknown, Verified 08/03/23 10:38) Unknown Sulfa (Sulfonamide Antibiotics) Allergy (Unknown, Verified 08/03/23 10:38) Unknown sulfadiazine Allergy (Unknown, Verified 08/03/23 10:38) Unknown adhesive Adverse Reaction (Unknown, Verified 08/03/23 10:38) Unknown Medication List - Last Reconciled 08/03/23 by Hanna Garcia MD albuterol sulfate 90 mcg/actuation 0 mcg inhalation alprazolam 1 mg PO BID PRN 1 day amitriptyline 100 mg PO BEDTIME budesonide-formoterol 160-4.5 mcg/actuation 2 puffs inhalation BID afgtwnnnjp-bvtcgnopxvrpg-vqyu 50-300-40 mg caps PO PRN carisoprodol 350 mg PO PRN celecoxib mg PO BID cyclobenzaprine 5 mg PO DAILY PRN cyclosporine 0.05% (Restasis) 1 drp ophthalmic (eye) Q12H diclofenac potassium 50 mg PO TID PRN 30 days escitalopram oxalate 5 mg PO DAILY [hair volume with apple extract PO DAILY] hydrocodone-acetaminophen 5-325 mg 1 tab PO Q4-6H PRN indomethacin 50 mg PO TID PRN 30 days lorazepam 1 mg PO BID PRN magnesium oxide 400 mg PO DAILY melatonin 3 mg PO BEDTIME methocarbamol 750 - 1,500 mg PO TID PRN naproxen 500 mg PO BID PRN onabotulinumtoxinA (Botox) 200 units IM ONCE 12 weeks ondansetron 8 mg PO Q8H PRN 30 days ondansetron HCl 4 mg PO BID PRN oxycodone 5 mg PO BID PRN pantoprazole 40 mg PO DAILY riboflavin (vitamin B2) 400 mg PO DAILY simvastatin 20 mg PO BEDTIME tizanidine (Zanaflex) 4 mg PO DAILY PRN tramadol 50 mg PO BID PRN HPI Comments Details: ? 62y/o female comes for treatment of migraines with botox. How many migraine days prior to botox- 20 days a month How long do the migraines last- 1-2 days Intensity of migrainesevere 8-10/23 ER visits related to migraine- none Effectiveness of botox from last two treatment(s) How many migraine days since receiving treatment: Change? in intensity of migraine?decreased Change in frequency of migraine?decreased Change in use of acute medication for migraine?decreased use Change in quality of life?improved ER visits related to migraine?none Have at least three months elapsed since last treatment -yes ??? Most frequent reported adverse reactions following injection of botox for chronic migraine include neck pain (9%), headache(5%), eyelid ptosis(4%), migraine(4%), muscular weakness(4%), musculuskeletal stiffness(4%), bronchitis(3%), injection site pain (3%), musculoskeletal pain(3%), myalgia(3%), facial paresis(2%), HTN(2%) and muscle spasms(2%) were discussed in detail. A ??? Botulinum toxin typeA 200units Lot no [id number] expiration Sep 2025 was diluted with 4 cc of normal saline . ??? Muscles injected- ??? Frontalis 4 sites ??? Procerus 1 site ??? Loss Prevention Representative- 2 sites ??? Temporalis- 8 sites ??? Occipitalis- 6 sites ??? Cervical paraspinals- 4 sites ??? Trapezius- 6 sites- units each ??? 5 units each in 31 site ??? Total use- 155units ??? Discarded-45units [facility] [place] Medical History Arthritis HLD (hyperlipidemia) Osteoporosis Asthma COPD (chronic obstructive pulmonary disease) Anemia Paresthesias Surgical History H/O left wrist surgery H/O: hysterectomy Hx of cholecystectomy Hx of appendectomy Family History Paternal Aunt Parkinsons disease Father Heart disease Mother Heart disease Hypertension Social History Alcohol intake: current Alcohol intake frequency: holidays/special occasions only Patient Tobacco Use Status: Current everyday Tobacco user Physical Exam Vital Signs: Last Vital Signs Pulse 104 H 08/03/23 10:39 Resp 16 08/03/23 10:39 BP 110/70 08/03/23 10:39 Pulse Ox 97 08/03/23 10:39 Oxygen Delivery Method Room Air 08/03/23 10:39 BMI result Body Mass Index 18.6 Const General: cooperative and no acute distress Orientation/consciousness: patient oriented x3 HEENT Head: Yes normocephalic Resp Effort & Inspection: normal respiratory effort and able to speak in complete sentences Neuro General: patient oriented x3, gait normal and CN's II-XI intact bilaterally Cognition (Neuro): normal cognition Motor exam (neuro): 5/5 motor strength present throughout Psych Appearance: grossly normal Mental Status: mental status grossly normal Speech and movement: Normal speech and movement present Affect: normal affect Attitude: cooperative Thought process: Normal thought process present Thought content: Normal thought content present Insight: Good insight present (Psych) Judgement: Good judgement present (Psych) Office Procedures Botulinum toxin Injection 97225 - Migraine Procedure code (CPT) selection complete Office Meds onabotulinumtoxinA 200 unit solution for injection Performing Provider: Hanna Garcia MD Performing Location: [facility] [place] [facility] Administered by: Hanna Garcia MD on 08/03/23 11:03 Dose Route Admin Location Dispensed Lot Number Expiration Date [facility] Vice President Fixed Income 155 unit IM 200 units [id number] 09/13/25 9022-5486-16 ALLERGAN/BOTOX Comments: see hpi Assessment & Plan Assessment & Plan (1) Chronic migraine without aura: Code(s): G43.709 - Chronic migraine without aura, not intractable, without status migrainosus Category: Medical Plan Patient tolerated the procedure well she will call with any side effects Orders: Orders AMB Botulinum toxin Injection Today G43.709 - Chronic migraine without aura, not intractable, without status migrainosus Medications: New onabotulinumtoxinA 200 units IM ONCE 1 ea 0RF migraine G43.709 - Chronic migraine without aura, not intractable, without status migrainosus Coding Level of Care Code Est Pt Level 1 (35200) Diagnoses Chronic migraine without aura G43.709 CPT Codes Botox Injection - Botox 3: 28470 - Migraine ([id number])
[2023-08-03 10:39] VITALS: BP 110/70; PULSE 104; RESP 16; O2SAT 97; BMI 18.6
== END 2023-08-03 11:03 | disposition home or self-care (01) ==
PROVIDERS: PCP Internal Medicine; Visit Provider Psychiatry & Neurology Neurology
DX: G43.709 Chronic migraine without aura, not intractable, without status migrainosus (principal)
CPT/HCPCS: 64615

== ENCOUNTER → 2023-08-03 10:37 | Outpatient (BNVA) | payer OTHER, SELFPAY | PROVIDERS: PCP Internal Medicine; Visit Provider Psychiatry & Neurology Neurology | DX: G43.709 Chronic migraine without aura, not intractable, without status migrainosus (principal) | CPT/HCPCS: 64615; 99211; J0585 ==

== ENCOUNTER 2023-08-29 09:01 | Outpatient (AMB) | payer OTHER, SELFPAY ==
--- NOTE | 2023-08-29 09:10 | A.OFFVIS_ITS ---
Vital Signs 08/29/23 09:11 Height 5 ft 5 in Weight 112 lb BMI 18.6 BP 98/74 Blood Pressure Location Rt brachial Position Sitting Pulse 96 Pulse Source Pulse Oximeter Pulse Oximetry (%) 98 Oxygen Delivery Method Room Air Intake Visit Reasons: follow up Migraines-LVM Intake Note: Patient presents for migraines. migraines have gotten better but the pressure is till there Allergies bacitracin [From Neosporin (cus-mmv-mmohx)] Allergy (Unknown, Verified 08/29/23 09:15) Unknown neomycin [From Neosporin (zly-ktf-aaogg)] Allergy (Unknown, Verified 08/29/23 09:15) Unknown polymyxin B [From Neosporin (jky-smw-qfenb)] Allergy (Unknown, Verified 08/29/23 09:15) Unknown Sulfa (Sulfonamide Antibiotics) Allergy (Unknown, Verified 08/29/23 09:15) Unknown sulfadiazine Allergy (Unknown, Verified 08/29/23 09:15) Unknown adhesive Adverse Reaction (Unknown, Verified 08/29/23 09:15) Unknown Medication List - Last Reconciled 08/29/23 by CLIFTON Silvestre albuterol sulfate 90 mcg/actuation 0 mcg inhalation alprazolam 1 mg PO BID PRN 1 day amitriptyline 100 mg PO BEDTIME budesonide-formoterol 160-4.5 mcg/actuation 2 puffs inhalation BID tkioevcnrs-wjdfosmtphrwf-hlqb 50-300-40 mg caps PO PRN carisoprodol 350 mg PO PRN celecoxib mg PO BID cyclobenzaprine 5 mg PO DAILY PRN cyclosporine 0.05% (Restasis) 1 drp ophthalmic (eye) Q12H diclofenac potassium 50 mg PO TID PRN 30 days escitalopram oxalate 5 mg PO DAILY [hair volume with apple extract PO DAILY] hydrocodone-acetaminophen 5-325 mg 1 tab PO Q4-6H PRN indomethacin 50 mg PO TID PRN 30 days indomethacin 25 mg PO TID 30 days lorazepam 1 mg PO BID PRN magnesium oxide 400 mg PO DAILY melatonin 3 mg PO BEDTIME methocarbamol 750 - 1,500 mg PO TID PRN naproxen 500 mg PO BID PRN onabotulinumtoxinA (Botox) 200 units IM ONCE 12 weeks ondansetron 8 mg PO Q8H PRN 30 days ondansetron HCl 4 mg PO BID PRN oxycodone 5 mg PO BID PRN pantoprazole 40 mg PO DAILY riboflavin (vitamin B2) 400 mg PO DAILY simvastatin 20 mg PO BEDTIME tizanidine (Zanaflex) 4 mg PO DAILY PRN tramadol 50 mg PO BID PRN HPI Comments Details: 62-yr-old female presents for f/u visit. Pt denies any significant interval medical changes. Pt reports that the Botox for her chronic migraine has been very helpful. Pt reports she has 3 migraine days in the last month. She is surprised that she has not had a migraine during this recent heat wave. She continues to have episodes of sudden pressure pain a/w allodynia in the crown of the head, which can last 2 days. She continues to have bouts of right frontal stabbing head pains. She is using Indomethacin 25mg, or Diclofenac 50ng. Also Dual Action Advil (APAP 250mg/Ibuprofen 125mg per tab)- usually takes 1 tab w/ good effect for her back pain. She does endorse some heartburn, compliant w/ her PPI. Not always taking food w/ her NSAIDs. She notes she pulled her neck while boating over the weakened. She plans to have a prn laser tx at [facility], which has been very helpful in the past. Baseline headache characteristics: Top of head, pressure. A/w photophobia, phonophobia, osmophobia. N/V, dizziness, may see black spots. No paresthesias, focal weakness, autonomic features. She is more prone to migraine in the spring and fall, as well as barometric changes. [facility] Medical History (Updated 08/29/23 @ 09:40 by CLIFTON Silvestre) Arthritis HLD (hyperlipidemia) Osteoporosis Asthma COPD (chronic obstructive pulmonary disease) Anemia Paresthesias Surgical History H/O left wrist surgery H/O: hysterectomy Hx of cholecystectomy Hx of appendectomy Family History Paternal Aunt Parkinsons disease Father Heart disease Mother Heart disease Hypertension Social History Alcohol intake: current Alcohol intake frequency: holidays/special occasions only Patient Tobacco Use Status: Current everyday Tobacco user Physical Exam Vital Signs: Last Vital Signs Pulse 96 08/29/23 09:11 BP 98/74 08/29/23 09:11 Pulse Ox 98 08/29/23 09:11 Oxygen Delivery Method Room Air 08/29/23 09:11 BMI result Body Mass Index 18.6 Const General: cooperative and no acute distress Orientation/consciousness: patient oriented x3 Resp Effort & Inspection: normal respiratory effort and able to speak in complete sentences Neuro General: patient oriented x3 Cranial nerves: Yes CN's II-XII intact bilaterally Cognition (Neuro): normal cognition Psych Appearance: grossly normal Mental Status: mental status grossly normal Speech and movement: Normal speech and movement present Affect: normal affect Attitude: cooperative Assessment & Plan Assessment & Plan (1) Chronic migraine without aura: Code(s): G43.709 - Chronic migraine without aura, not intractable, without status migrainosus Category: Medical (2) Stabbing headache: Comment: w/o autonomic s/s Code(s): G44.85 - Primary stabbing headache Category: Medical Plan For stabbing headache: Hold order for Brain/head MRA- was deneid by insurance. Hold Diclofenac 50mg up to tid prn. Re-trial Indomethacin at 25mg po TID scheduled x's 4 weeks. Advised to take Indomethacin (or any NSAID w/ food). Do not take Indomethacin w/ other NSAID- pt verbalizes understanidng. Check CBC and CMP- lab slip given to pt for new baseline. Recheck BMP in 4 weeks- lab slip given to pt. For acute migraine headache treatment: May continue Fioricet prn for now- use sparingly. Continue Zofran to 8mg ODT prn N?V May adjunct w/ Benadryl 25-50mg q 6-8hrs prn. Pt previously requested Fioicet w/ Codeine- however I am not comfortable resuming this as it would significantly increase pt's risk for medication adaptation headache. Previous acute migraine medication trials: Sumatriptan, Zolmitriptan, Eletriptan- caused racing heart rate. Acute migraine medication contraindications: None at this time. Future considerations- gepant- however would need to wean off Fioricet. ? For migraine headache prevention medication: Continue Riboflavin 400mg qam Continue Magnesium 400mg qhs Continue Amitriptyline 100mg qhs. Continue Botox 155 units IM q 12 weeks (CPT 35244), as pt is already having good clinical effect. Previous migraine prevention medication trials: Emgality- x's 2 months- had 2 week post-injection headache. Topiramate, Propranolol, Depakote, Gabapentin- ineffective. Nortriptyline worsened headache. Migraine prevention medication contraindications: Would avoid Aimovig d/t h/o constipation. ?Monitor neck pain- f/u if no response to her laser tx at [facility]. Monitor tremors clinically for now. ? Will f/u w/ pt in approx 1 month to check on status/effect of above plan. F/u in 6 months or sooner prn. Orders: Orders Comprehensive Met. Panel Today D64.9 - Anemia, unspecified, G44.85 - Primary stabbing headache, I95.9 - Hypotension, unspecified Basic Metabolic Panel Today G44.85 - Primary stabbing headache Complete Blood Count Auto Diff Today D64.9 - Anemia, unspecified, G44.85 - Primary stabbing headache, I95.9 - Hypotension, unspecified Medications: New indomethacin administer with food or milk. Do NOT take w/ Advil or Diclofenac or Celebrex. 25 mg PO TID 30 days 90 caps 1RF Discontinued indomethacin administer with food or milk. do not take w/ diclofenac Discontinued Reason: Doctor's Order 50 mg PO TID 30 days PRN 90 caps 1RF stabbing headache Coding Level of Care Code Est Pt Level 4 (78523) Diagnoses Chronic migraine without aura G43.709 Stabbing headache G44.85
[2023-08-29 09:11] VITALS: BP 98/74; PULSE 96; O2SAT 98; BMI 18.6
== END 2023-08-29 09:56 | disposition home or self-care (01) ==
PROVIDERS: PCP Internal Medicine; Visit Provider Nurse Practitioner Family
DX: G43.709 Chronic migraine without aura, not intractable, without status migrainosus (principal); G44.85 Primary stabbing headache
CPT/HCPCS: 99214

== ENCOUNTER 2023-11-06 09:32 | Outpatient (AMB) | payer OTHER, SELFPAY ==
--- NOTE | 2023-11-06 09:36 | A.OFFVIS_ITS ---
Vital Signs 11/06/23 09:37 Weight 111 lb 2 oz BP 112/68 Blood Pressure Location Rt brachial Position Sitting Respiration 16 Pulse 51 Pulse Source Pulse Oximeter Pulse Oximetry (%) 93 Oxygen Delivery Method Room Air Intake Visit Reasons: Botox Intake Note: Pt presents for Botox injections for migraines. Cell Lead Required: No Allergies bacitracin [From Neosporin (qyi-irq-otpae)] Allergy (Unknown, Verified 11/06/23 09:36) Unknown neomycin [From Neosporin (hkw-usq-oioqw)] Allergy (Unknown, Verified 11/06/23 09:36) Unknown polymyxin B [From Neosporin (bjs-jco-uwelz)] Allergy (Unknown, Verified 11/06/23 09:36) Unknown Sulfa (Sulfonamide Antibiotics) Allergy (Unknown, Verified 11/06/23 09:36) Unknown sulfadiazine Allergy (Unknown, Verified 11/06/23 09:36) Unknown adhesive Adverse Reaction (Unknown, Verified 11/06/23 09:36) Unknown Medication List - Last Reconciled 11/06/23 by Hanna Garcia MD albuterol sulfate 90 mcg/actuation 0 mcg inhalation alprazolam 1 mg PO BID PRN 1 day amitriptyline 100 mg PO BEDTIME budesonide-formoterol 160-4.5 mcg/actuation 2 puffs inhalation BID gcipgngcez-aanqvfvnmsaym-bfix 50-300-40 mg caps PO PRN carisoprodol 350 mg PO PRN celecoxib mg PO BID cyclobenzaprine 5 mg PO DAILY PRN cyclosporine 0.05% (Restasis) 1 drp ophthalmic (eye) Q12H diclofenac potassium 50 mg PO TID PRN 30 days escitalopram oxalate 5 mg PO DAILY [hair volume with apple extract PO DAILY] hydrocodone-acetaminophen 5-325 mg 1 tab PO Q4-6H PRN indomethacin 25 mg PO TID 30 days lorazepam 1 mg PO BID PRN magnesium oxide 400 mg PO DAILY melatonin 3 mg PO BEDTIME methocarbamol 750 - 1,500 mg PO TID PRN naproxen 500 mg PO BID PRN onabotulinumtoxinA (Botox) 200 units IM ONCE 12 weeks ondansetron 8 mg PO Q8H PRN 30 days ondansetron HCl 4 mg PO BID PRN oxycodone 5 mg PO BID PRN pantoprazole 40 mg PO DAILY riboflavin (vitamin B2) 400 mg PO DAILY simvastatin 20 mg PO BEDTIME tizanidine (Zanaflex) 4 mg PO DAILY PRN tramadol 50 mg PO BID PRN HPI Comments Details: ? 63y/o female comes for treatment of migraines with botox. How many migraine days prior to botox- 20 days a month How long do the migraines last- 1-2 days Intensity of migrainesevere 8-10/23 ER visits related to migraine- none Effectiveness of botox from last two treatment(s) How many migraine days since receiving treatment: Change? in intensity of migraine?decreased Change in frequency of migraine?decreased Change in use of acute medication for migraine?decreased use Change in quality of life?improved ER visits related to migraine?none Have at least three months elapsed since last treatment -yes ??? Most frequent reported adverse reactions following injection of botox for chronic migraine include neck pain (9%), headache(5%), eyelid ptosis(4%), migraine(4%), muscular weakness(4%), musculuskeletal stiffness(4%), bronchitis(3%), injection site pain (3%), musculoskeletal pain(3%), myalgia(3%), facial paresis(2%), HTN(2%) and muscle spasms(2%) were discussed in detail. A ??? Botulinum toxin typeA 200units Lot no [id number] expiration Jan 2026 was diluted with 4 cc of normal saline . ??? Muscles injected- ??? Frontalis 4 sites ??? Procerus 1 site ??? Hand Leather Trimmer- 2 sites ??? Temporalis- 8 sites ??? Occipitalis- 6 sites ??? Cervical paraspinals- 4 sites ??? Trapezius- 6 sites- units each ??? 5 units each in 31 site ??? Total use- 155units ??? Discarded-45units [facility] Medical History (Updated 11/06/23 @ 10:02 by Hanna Garcia MD) Chronic migraine without aura, not intractable, without status migrainosus Arthritis HLD (hyperlipidemia) Osteoporosis Asthma COPD (chronic obstructive pulmonary disease) Anemia Paresthesias Surgical History H/O left wrist surgery H/O: hysterectomy Hx of cholecystectomy Hx of appendectomy Family History Paternal Aunt Parkinsons disease Father Heart disease Mother Heart disease Hypertension Social History Alcohol intake: current Alcohol intake frequency: holidays/special occasions only Patient Tobacco Use Status: Current everyday Tobacco user Physical Exam Vital Signs: Last Vital Signs Pulse 51 11/06/23 09:37 Resp 16 11/06/23 09:37 BP 112/68 11/06/23 09:37 Pulse Ox 93 11/06/23 09:37 Oxygen Delivery Method Room Air 11/06/23 09:37 Const General: cooperative and no acute distress Orientation/consciousness: patient oriented x3 HEENT Head: Yes normocephalic Resp Effort & Inspection: normal respiratory effort and able to speak in complete sentences Neuro General: patient oriented x3, gait normal and CN's II-XI intact bilaterally Cognition (Neuro): normal cognition Motor exam (neuro): 5/5 motor strength present throughout Psych Appearance: grossly normal Mental Status: mental status grossly normal Speech and movement: Normal speech and movement present Office Procedures Botulinum toxin Injection 08674 - Migraine Procedure code (CPT) selection complete Office Meds onabotulinumtoxinA 200 unit solution for injection Performing Provider: Hanna Garcia MD Performing Location: [facility] [place] [facility] Administered by: Hanna Garcia MD on 11/06/23 10:09 Dose Route Admin Location Dispensed Lot Number Expiration Date [facility] [employer] 155 unit subcut 200 units [id number] 01/13/26 1188-9038-51 ALLERGAN/BOTOX Assessment & Plan Assessment & Plan (1) Chronic migraine without aura, not intractable, without status migrainosus: Code(s): G43.709 - Chronic migraine without aura, not intractable, without status migrainosus Category: Medical Plan Patient tolerated the procedure well she will call with any side effects Orders: Orders AMB Botulinum toxin Injection Today G43.709 - Chronic migraine without aura, not intractable, without status migrainosus Medications: New onabotulinumtoxinA 200 units subcut ONCE 1 ea 0RF migraine G43.709 - Chronic migraine without aura, not intractable, without status migrainosus Coding Level of Care Code Est Pt Level 1 (07686) Diagnoses Chronic migraine without aura, not intractable, without status migrainosus G43.709 CPT Codes Botox Injection - Botox 3: 50022 - Migraine ([id number])
[2023-11-06 09:37] VITALS: BP 112/68; PULSE 51; RESP 16; O2SAT 93
== END 2023-11-06 10:00 | disposition home or self-care (01) ==
PROVIDERS: PCP Internal Medicine; Visit Provider Psychiatry & Neurology Neurology
DX: G43.709 Chronic migraine without aura, not intractable, without status migrainosus (principal)
CPT/HCPCS: 64615

== ENCOUNTER → 2023-11-06 09:32 | Outpatient (BNVA) | payer OTHER, SELFPAY | PROVIDERS: PCP Internal Medicine; Visit Provider Psychiatry & Neurology Neurology | DX: G43.709 Chronic migraine without aura, not intractable, without status migrainosus (principal) | CPT/HCPCS: 64615; 99211; J0585 ==

== ENCOUNTER 2024-03-12 13:12 | Outpatient (AMB) | payer OTHER, SELFPAY ==
--- NOTE | 2024-03-12 13:13 | MHC.OFFVIS ---
Vital Signs 03/12/24 13:19 Height 5 ft 5 in Intake Visit Reasons: BOTOX Intake Note: Patient presents for botox injection Allergies bacitracin [From Neosporin (yzk-nya-edkti)] Allergy (Unknown, Verified 03/15/24 13:43) Unknown neomycin [From Neosporin (jrc-vbm-vdzcx)] Allergy (Unknown, Verified 03/15/24 13:43) Unknown polymyxin B [From Neosporin (pal-wfv-prbyz)] Allergy (Unknown, Verified 03/15/24 13:43) Unknown Sulfa (Sulfonamide Antibiotics) Allergy (Unknown, Verified 03/15/24 13:43) Unknown sulfadiazine Allergy (Unknown, Verified 03/15/24 13:43) Unknown adhesive Adverse Reaction (Unknown, Verified 03/15/24 13:43) Unknown Medication List - Last Reconciled 03/18/24 by Hanna Garcia MD albuterol sulfate 90 mcg/actuation 0 mcg inhalation alprazolam 1 mg PO BID PRN 1 day amitriptyline 100 mg PO BEDTIME budesonide-formoterol 160-4.5 mcg/actuation 2 puffs inhalation BID btuzolrpfo-ywvzycvpgiedq-iugh 50-300-40 mg caps PO PRN carisoprodol 350 mg PO PRN celecoxib mg PO BID cyclobenzaprine 5 mg PO DAILY PRN cyclosporine 0.05% (Restasis) 1 drp ophthalmic (eye) Q12H diclofenac sodium 75 mg PO BID PRN 30 days escitalopram oxalate 5 mg PO DAILY [hair volume with apple extract PO DAILY] hydrocodone-acetaminophen 5-325 mg 1 tab PO Q4-6H PRN lorazepam 1 mg PO BID PRN magnesium oxide 400 mg PO DAILY melatonin 3 mg PO BEDTIME methocarbamol 750 - 1,500 mg PO TID PRN onabotulinumtoxinA (Botox) 200 units IM ONCE 12 weeks ondansetron 8 mg PO Q8H PRN 30 days ondansetron HCl 4 mg PO BID PRN oxcarbazepine (Trileptal) 150 mg PO BEDTIME 30 days oxycodone 5 mg PO BID PRN pantoprazole 40 mg PO DAILY riboflavin (vitamin B2) 400 mg PO DAILY simvastatin 20 mg PO BEDTIME tizanidine (Zanaflex) 4 mg PO DAILY PRN tramadol 50 mg PO BID PRN HPI Comments Details: ? 63y/o female comes for treatment of migraines with botox. How many migraine days prior to botox- 20 days a month How long do the migraines last- 1-2 days Intensity of migrainesevere 8-9/10 ER visits related to migraine- none Effectiveness of botox from last two treatment(s) How many migraine days since receiving treatment: Change? in intensity of migraine?decreased Change in frequency of migraine?decreased Change in use of acute medication for migraine?decreased use Change in quality of life?improved ER visits related to migraine?none Have at least three months elapsed since last treatment -yes ??? Most frequent reported adverse reactions following injection of botox for chronic migraine include neck pain (9%), headache(5%), eyelid ptosis(4%), migraine(4%), muscular weakness(4%), musculuskeletal stiffness(4%), bronchitis(3%), injection site pain (3%), musculoskeletal pain(3%), myalgia(3%), facial paresis(2%), HTN(2%) and muscle spasms(2%) were discussed in detail. A ??? Botulinum toxin typeA 200units Lot no [id number] expiration April 2026 was diluted with 4 cc of normal saline . ??? Muscles injected- ??? Frontalis 4 sites ??? Procerus 1 site ??? Calender Operator Helper- 2 sites ??? Temporalis- 8 sites ??? Occipitalis- 6 sites ??? Cervical paraspinals- 4 sites ??? Trapezius- 6 sites- units each ??? 5 units each in 31 site ??? Total use- 155units ??? Discarded-45units [facility] Medical History Chronic migraine without aura, not intractable, without status migrainosus Arthritis HLD (hyperlipidemia) Osteoporosis Asthma COPD (chronic obstructive pulmonary disease) Anemia Paresthesias Surgical History H/O left wrist surgery H/O: hysterectomy Hx of cholecystectomy Hx of appendectomy Family History Paternal Aunt Parkinsons disease Father Heart disease Mother Heart disease Hypertension Social History Alcohol intake: current Alcohol intake frequency: holidays/special occasions only Patient Tobacco Use Status: Current everyday Tobacco user Physical Exam Const General: cooperative and no acute distress Orientation/consciousness: patient oriented x3 Resp Effort & Inspection: normal respiratory effort and able to speak in complete sentences Neuro Other: No visible rest or postural tremor. General: patient oriented x3 Cranial nerves: Yes CN's II-XII intact bilaterally Cognition (Neuro): normal cognition Psych Appearance: grossly normal Mental Status: mental status grossly normal Speech and movement: Normal speech and movement present Affect: normal affect Attitude: cooperative Office Procedures Botulinum toxin Injection 35867 - Migraine Procedure code (CPT) selection complete Office Meds onabotulinumtoxinA 200 unit solution for injection Performing Provider: Hanna Garcia MD Performing Location: [facility] [place] [facility] Administered by: Hanna Garcia MD on 03/18/24 10:01 Dose Route Admin Location Dispensed Lot Number Expiration Date [facility] Television Announcer 155 unit IM 200 units [id number] ALLERGAN/BOTOX Comments: see hpi Assessment & Plan Assessment & Plan (1) Chronic migraine without aura, not intractable, without status migrainosus: Code(s): G43.709 - Chronic migraine without aura, not intractable, without status migrainosus Category: Medical Plan Patient tolerated the procedure well she will call with any side effects Orders: Orders AMB Botulinum toxin Injection 03/12/24 G43.709 - Chronic migraine without aura, not intractable, without status migrainosus Medications: New onabotulinumtoxinA 200 units IM ONCE 1 ea 0RF migraine G43.709 - Chronic migraine without aura, not intractable, without status migrainosus Coding Level of Care Code Est Pt Level 1 (96528) Diagnoses Chronic migraine without aura, not intractable, without status migrainosus G43.709 CPT Codes Botox Injection - Botox 3: 47467 - Migraine ([id number])
--- OUTSIDE RECORDS SUMMARY | 2024-03-12 14:12 | XMS_ITS | Encounter Summary ---
Author Organization [facility] Address [address] [place] [address] Care Team Providers Care Counter Weigher Name Role Phone GinetteVeroniqueyamil SUN Primary Care Provider [phone] Encounter Details Date Type Department Care Team (Late st Contact Info) Description 03/04/2024 Lab Requisition [facility] - Main Lab [address] [facility] [place] [id number] Laura Mccormick, BAGGAGEMASTER [address] [place] [id number] Acute vaginitis Social History Tobacco Use Types Packs/Day Years Used Date Smoking Tobacco: Every Day Cigarettes 1 24.1 Started: 02/14/2000 Smokeless Tobacco: Never Alcohol Use Standard Drinks/Week Comments Never 0 (1 standard drink = 0.6 oz pur e alcohol) Sex and Gender Information Value Date Recorded Sex Assigned at Not on file Gender Identity Not on file Sexual Orientation Not on file documented as of this encounter Plan of Treatment Not on file documented as of this encounter Procedures Procedure Name Priority Date/Time Associated Diagnosis Comments VAGINITIS PATHOGENS BY PCR Routine 03/04/2024 12:00 PM EST Acute vaginitis documented in this encounter Results * (ABNORMAL) Vaginitis pathogens molecular study (03/04/2024 12:00 PM EST) Trichomonas vaginalis Negative Negative 03/05/2024 9:35 AM EST [facility] Gardnerella vaginalis Positive(A) Negative 03/05/2024 9:35 AM EST [facility] Sona Species Negative Negative 9:35 AM EST [facility] Swab Vaginal structure / Unknown 03/04/2024 12:00 PM EST 03/04/2024 2:49 PM EST Laura Mccormick BAGGAGEMASTER LAB MICROBIOLOG Y - GENERAL ORDERABLES [facility] [address] [place] [address], documented in this encounter Visit Diagnoses Diagnosis Acute vaginitis Unspecified vaginitis and vulvovaginitis documented in this encounter Care Teams Counter Weigher Relationship Specialty Start Date End Date Michael Peng DO [address] [place] [phone] PCP - General Internal Medicine 04/20/18 documented as of this encounter
--- OUTSIDE RECORDS SUMMARY | 2024-03-12 14:12 | XMS_ITS | Clinical Summary ---
Author Organization [address] [facility] Address [address] [place] [phone] Phone Care Team Providers Care Counseling Services Director Name Role Phone JacyMicahel kamara Primary Care Provider [phone] Encounters Date Type Department Care Team Description 03/04/2024 Lab Requisition [facility] - Main Lab [address] [facility] [place] [address] Laura Mccormick NP Acute vaginitis from Last 3 Months Surgical History Surgery Date Site/Laterality Comments HYSTERECTOMY PROCEDURE: HISTORICAL HYSTERECTOMY CHOLECYSTECTOMY PROCEDURE: VT LAPAROSCOPY SURG CHOLECYSTECTOMY APPENDECTOMY PROCEDURE: VT APPENDECTOMY COLONOSCOPY PROCEDURE: HISTORICAL COLONOSCOPY Medical History Medical History Date Comments Anxiety state DX:Anxiety state Asthma DX:Asthma Cervical spondylosis without myelopathy DX:Cervical spondylosis without myelopathy Bronchitis DX:Bronchitis Esophageal reflux DX:Esophageal reflux Hyperlipidemia DX:Hyperlipidemi a Family History Medical History Relation Name Comments Coronary artery disease Father Coronary artery disease Mother Relation Name Status Comments Father Mother Social History Tobacco Use Types Packs/Day Years Used Date Smoking Tobacco: Every Day Cigarettes 1 24.1 Started: 02/14/2000 Smokeless Tobacco: Never Alcohol Use Standard Drinks/Week Comments Never 0 (1 standard drink = 0.6 oz pur e alcohol) Sex and Gender Information Value Date Recorded Sex Assigned at Not on file Gender Identity Not on file Sexual Orientation Not on file Obstetrics History Last Filed Vital Signs Vital Sign Reading Time Taken Comments Blood Pressure 105/78 11/03/2022 7:50 AM EDT Sit ting L Arm Pulse 89 11/03/2022 7:50 AM EDT Temperature - - Respiratory Rate - - Oxygen Saturation - - Inhaled Oxygen Concentration - - Weight 48.5 kg (107 lb) 11/03/2022 7:50 AM EDT Height 165.1 cm (5' 5 ) 11/03/2022 7:50 AM EDT Body Mass Index 17.81 11/03/2022 7:50 AM EDT Plan of Treatment Health Maintenance Due Date Last Done Comments Breast Cancer Screening 1962 Pneumococcal Vaccine: Pediatrics (0 to 5 Years) and At-Risk Patients (6 to 64 Years) (1 of 2 - PCV) 1968 Cervical Cancer Screening: P ap Smear 09/29/1983 Zoster Vaccines (1 of 2) 2012 Colorectal Cancer Screening: Colonoscopy 01/22/2022 Depression Screening 01/22/2022 HIV Screening 01/22/2022 Hepatitis C Screening 01/22/2022 Osteoporosis Screening (Bone Density Screening) 01/22/2022 Social Influencers of Health Screening 01/22/2022 RSV Immunization Patients 60 + Years Old (1 - Risk 60-74 years 1-dose series) 2022 COVID-19 Vaccine (4 - 2023-2 5 season) 2023 06/06/2021, 10/05/2020, 09/14/2020 Influenza Vaccine (#1) 2023 , 12/11/2019, 10/27/2016 Cholesterol Screening (Lipid Panel) 03/04/2029 03/04/2024 DTaP,Tdap,and Td Vaccines (2 - Td or Tdap) 04/27/2031 04/26/2021 HIB Vaccines Aged Out No longer eligi ble based on patient's age to complete this topic HPV Vaccines Aged Out No longer eligi ble based on patient's age to complete this topic Hepatitis A Vaccines Aged Out No long er eligible based on patient's age to complete this topic Hepatitis B Vaccines Aged Out No long er eligible based on patient's age to complete this topic IPV Vaccines Aged Out No longer eligi ble based on patient's age to complete this topic MMR Vaccines Aged Out No longer eligi ble based on patient's age to complete this topic Meningococcal ACWY Vaccine Aged Out N o longer eligible based on patient's age to complete this topic RSV Immunization Patients Under 20 months Aged Out No longer eligible b ased on patient's age to complete this topic Varicella Vaccines Aged Out No longer eligible based on patient's age to complete this topic Procedures Procedure Name Priority Date/Time Associated Diagnosis Comments CBC WITH AUTO DIFFERENTIAL Routine 03/04/2024 12:41 PM EST Hyperlipemia Vanishing lung (CMS/HCC) Senile osteoporosis Esophageal reflux HEMOGLOBIN A1C Routine 03/04/2024 12:41 PM EST Hyperlipemia Vanishing lung (CMS/HCC) Senile osteoporosis Esophageal reflux COMPREHENSIVE METABOLIC PANEL Routine 03/04/2024 12:41 PM EST Hyperlipemia Vanishing lung (CMS/HCC) Senile osteoporosis Esophageal reflux CBC AND DIFFERENTIAL Routine 03/04/2024 12:41 PM EST Hyperlipemia Vanishing lung (CMS/HCC) Senile osteoporosis Esophageal reflux THYROID STIMULATING HORMONE Routine 03/04/2024 12:41 PM EST Hyperlipemia Vanishing lung (CMS/HCC) Senile osteoporosis Esophageal reflux CREATINE KINASE Routine 03/04/2024 12:41 PM EST Hyperlipemia Vanishing lung (CMS/HCC) Senile osteoporosis Esophageal reflux LIPID PANEL WITH REFLEX TO DIRECT LDL Routine 03/04/2024 12:41 PM EST Hyperlipemia Vanishing lung (CMS/HCC) Senile osteoporosis Esophageal reflux VAGINITIS PATHOGENS BY PCR Routine 03/04/2024 12:00 PM EST Acute vaginitis from Last 3 Months Results * (ABNORMAL) Lipid panel with reflex to direct LDL (03/04/2024 12:41 PM EST) Cholesterol 204(H) 0 - 200 mg/dL LAB CHEMISTRY METHOD 03/04/2024 4:24 PM EST [facility] Triglycerides 116 0 - 150 mg/dL LAB CHEMISTRY METHOD 03/04/2024 4:24 PM EST [facility] HDL 61 >=40 mg/dL LAB CHEMISTRY METHOD 03/04/2024 4:24 PM EST [facility] LDL Calculated 120(H) 0 - 100 mg/dL LAB CHEMISTRY METHOD 03/04/2024 4:24 PM EST [facility] VLDL Cholesterol Jt 23.2 mg/dL LAB CHEMISTRY METHOD 03/04/2024 4:24 PM [facility] Non HDL Chol. (LDL+VLDL) 143 <145 mg/dL LAB CHEMISTRY METHOD 03/04/2024 4:24 PM [facility] Chol/HDL Ratio 3.3 0.0 - 4.4 LAB CHEMISTRY METHOD 03/04/2024 4:24 PM [facility] Blood Venous blood specimen / Unknown Venipuncture / Unknown 03/04/2024 12:41 PM EST 03/04/2024 12:41 PM EST Laura Mccormick NP LAB BLOOD ORDER ANNIE [facility] [address] [place] [address], * CBC auto differential (03/04/2024 12:41 PM EST) WBC 7.3 4.8 - 10.8 K/mcL LAB HEMETOLOGY METHOD 03/04/2024 3:20 PM [facility] RBC 4.40 3.80 - 4.80 M/mcL LAB HEMETOLOGY METHOD 03/04/2024 3:20 PM [facility] Hemoglobin 13.1 11.5 - 16.0 g/dL LAB HEMETOLOGY METHOD 03/04/2024 3:20 PM [facility] Hematocrit 41.0 35.0 - 47.0 % LAB HEMETOLOGY METHOD 03/04/2024 3:20 PM [facility] MCV 94.0 79.0 - 98.0 FL LAB HEMETOLOGY METHOD 03/04/2024 3:20 PM [facility] MCH 30.0 27.0 - 32.0 pcg LAB HEMETOLOGY METHOD 03/04/2024 3:20 PM [facility] MCHC 32.0 32.0 - 37.0 g/dL LAB HEMETOLOGY METHOD 03/04/2024 3:20 PM [facility] RDW 13.0 11.0 - 15.0 % LAB HEMETOLOGY METHOD 03/04/2024 3:20 PM [facility] Platelets 271 130 - 400 K/mcL LAB HEMETOLOGY METHOD 03/04/2024 3:20 PM [facility] MPV 10.3 7.0 - 11.0 FL LAB HEMETOLOGY METHOD 03/04/2024 3:20 PM [facility] NRBC 0.0 <1.0 % LAB HEMETOLOGY METHOD 03/04/2024 3:20 PM [facility] NRBC Absolute 0.00 <0.10 K/mcL LAB HEMETOLOGY METHOD 03/04/2024 3:20 PM [facility] Neutrophils Relative 51.6 % LAB HEMETOLOGY METHOD 03/04/2024 3:20 PM [facility] Lymphocytes Relative 38.4 % LAB HEMETOLOGY METHOD 03/04/2024 3:20 PM [facility] Monocytes Relative 7.0 % LAB HEMETOLOGY METHOD 03/04/2024 3:20 PM [facility] Eosinophils Relative 1.9 % LAB HEMETOLOGY METHOD 03/04/2024 3:20 PM [facility] Basophils Relative 0.8 % LAB HEMETOLOGY METHOD 03/04/2024 3:20 PM [facility] Immature Granulocytes Relative 0.3 % LAB HEMETOLOGY METHOD 03/04/2024 3:20 PM [facility] Neutrophils Absolute 3.78 1.50 - 7.00 K/mcL LAB HEMETOLOGY METHOD 03/04/2024 3:20 PM EST [facility] Lymphocytes Absolute 2.81 1.00 - 5.00 K/mcL LAB HEMETOLOGY METHOD 03/04/2024 3:20 PM EST [facility] Monocytes Absolute 0.51 0.20 - 1.00 K/mcL LAB HEMETOLOGY METHOD 03/04/2024 3:20 PM EST [facility] Eosinophils Absolute 0.14 0.00 - 0.50 K/[facility] LAB HEMETOLOGY METHOD 03/04/2024 3:20 PM EST [facility] Basophils Absolute 0.06 0.00 - 0.20 K/[facility] LAB HEMETOLOGY METHOD 03/04/2024 3:20 PM EST [facility] Immature Granulocytes Absolute 0.02 0.00 - 0.03 K/[facility] LAB HEMETOLOGY METHOD 03/04/2024 3:20 PM EST [facility] Blood Venous blood specimen / Unknown Venipuncture / Unknown 03/04/2024 12:41 PM EST 03/04/2024 12:41 PM EST Laura Mccormick NP LAB BLOOD ORDER ANNIE [facility] [address] [place] [address], * Thyroid stimulating hormone (03/04/2024 12:41 PM EST) TSH 1.09 0.40 - 4.00 mcIU/mL LAB CHEMISTRY METHOD 03/04/2024 4:30 PM EST [facility] Blood Venous blood specimen / Unknown Venipuncture / Unknown 03/04/2024 12:41 PM EST 03/04/2024 12:41 PM EST Laura B Libiszewski [employer] LAB BLOOD ORDER ANNIE Performing Organization Address City/[facility]/ZIP Co de Phone Number [facility] [address] [place] [address], [place] [phone] * Hemoglobin A1c (03/04/2024 12:41 PM EST) Pathologist [facility] Hemoglobin A1C 5.3 <6.5 % LAB CHEMISTRY METHOD 03/04/2024 9:45 PM EST [facility] Mean Bld Glu Estim. 105 mg/dL LAB CHEMISTRY METHOD 03/04/2024 9:45 PM EST [facility] Blood Venous blood specimen / Unknown Venipuncture / Unknown 03/04/2024 12:41 PM EST 03/04/2024 12:41 PM EST Laura Mccormick NP LAB BLOOD ORDER ANNIE Performing Organization Address City/[facility]/ZIP Co de Phone Number [facility] [address] [place] [address], [place] [phone] * Creatine kinase (03/04/2024 12:41 PM EST) [facility] Total CK 96 22 - 269 unit/L LAB CHEMISTRY METHOD 03/04/2024 4:24 PM EST [facility] Blood Venous blood specimen / Unknown Venipuncture / Unknown 03/04/2024 12:41 PM EST 03/04/2024 12:41 PM EST Laura Mccormick [employer] LAB BLOOD ORDER ANNIE Performing Organization Address City/[facility]/ZIP Co de Phone Number [facility] [address] [place] [address], [place] [phone] * Comprehensive metabolic panel (03/04/2024 12:41 PM EST) [facility] Sodium 138 133 - 145 mmol/L LAB CHEMISTRY METHOD 03/04/2024 4:24 PM EST [facility] Potassium 4.3 3.5 - 5.5 mmol/L LAB CHEMISTRY METHOD 03/04/2024 4:24 PM [facility] Chloride 103 96 - 110 mmol/L LAB CHEMISTRY METHOD 03/04/2024 4:24 PM [facility] CO2 26 21 - 32 mmol/L LAB CHEMISTRY METHOD 03/04/2024 4:24 PM [facility] Anion Gap 9 3 - 11 LAB CHEMISTRY METHOD 03/04/2024 4:24 PM [facility] Glucose 81 70 - 100 mg/dL LAB CHEMISTRY METHOD 03/04/2024 4:24 PM [facility] BUN 7 5 - 25 mg/dL LAB CHEMISTRY METHOD 03/04/2024 4:24 PM [facility] Creatinine 1.01 0.50 - 1.10 mg/dL LAB CHEMISTRY METHOD 03/04/2024 4:24 PM [facility] eGFR 63 >=60 mL/min/1. 73m2 LAB CHEMISTRY METHOD 03/04/2024 4:24 PM [facility] Comment:Calculation based on the??Chronic Kidney Disease Epidemiology Collaboration (CKD-EPI) equation refit??without adjustment for race. BUN/Creatinine Ratio 6.9 LAB CHEMISTRY METHOD 03/04/2024 4:24 PM [facility] Calcium 8.6 8.5 - 10.5 mg/dL LAB CHEMISTRY METHOD 03/04/2024 4:24 PM [facility] AST (SGOT) 13 10 - 42 unit/L LAB CHEMISTRY METHOD 03/04/2024 4:24 PM [facility] ALT (SGPT) 14 10 - 60 unit/L LAB CHEMISTRY METHOD 03/04/2024 4:24 PM [facility] Alkaline Phosphatase 108 42 - 121 unit/L LAB CHEMISTRY METHOD 03/04/2024 4:24 PM [facility] Total Protein 7.0 6.0 - 8.0 g/dL LAB CHEMISTRY METHOD 03/04/2024 4:24 PM EST [facility] Albumin 3.8 3.2 - 5.0 g/dL LAB CHEMISTRY METHOD 03/04/2024 4:24 PM EST [facility] Total Bilirubin 0.2 0.0 - 1.4 mg/dL LAB CHEMISTRY METHOD 03/04/2024 4:24 PM EST [facility] Blood Venous blood specimen / Unknown Venipuncture / Unknown 03/04/2024 12:41 PM EST 03/04/2024 12:41 PM EST Laura Mccormick NP LAB BLOOD ORDER ANNIE Performing Organization Address [facility]/ZIP Co de Phone Number [facility] [address] [place] [address], [place] [phone] * (ABNORMAL) Vaginitis pathogens molecular study (03/04/2024 12:00 PM EST) Trichomonas vaginalis Negative Negative 03/05/2024 9:35 AM EST [facility] Gardnerella vaginalis Positive(A) Negative 03/05/2024 9:35 AM [facility] Sona Species Negative Negative 9:35 AM EST [facility] Swab Vaginal structure / Unknown 03/04/2024 12:00 PM EST 03/04/2024 2:49 PM EST Laura Mccormick NP LAB MICROBIOLOG Y - GENERAL ORDERABLES [facility] [address] [place] [address], [place] [phone] from Last 3 Months Care Teams Counseling Services Director Relationship Specialty Start Date End Date Michael Peng DO [address] [place] [phone] PCP - General Internal Medicine 04/20/18
--- OUTSIDE RECORDS SUMMARY | 2024-03-12 14:12 | XMS_ITS | Clinical Summary ---
Author Organization [facility] Address [address] [place] [address] Care Team Providers Care Manhole Stripper Name Role Phone Michael Peng DO Primary Care Provider [phone] Social History Tobacco Use Types Packs/Day Years Used Date Smoking Tobacco: Never Assessed Sex and Gender Information Value Date Recorded Sex Assigned at Not on file Gender Identity Not on file Sexual Orientation Not on file Job Start Date Occupation Industry Not on file Not on file Not on file Plan of Treatment Health Maintenance Due Date Last Done Comments Hepatitis C Screening 1962 COVID-19 Vaccine (#1) 03/31/1963 Depression Screening 1974 Preventative Health Evaluation 1980 DTap / Tdap / Td (1 - Tdap) 1981 Cervical Cancer Screening (P ap Smear) 09/29/1983 Colon Cancer Screening (Colonoscopy) 09/29/2007 Breast Cancer Screening (Mammogram) 2012 Shingrix-Zoster Vaccine (1 of 2) 2012 Influenza Vaccine (#1) 2023 RSV Adult > 60+ Yrs or Pregn ant (1 - 1-dose 75+ series) 2037 Hepatitis B Vaccines Aged Out No long er eligible based on patient's age to complete this topic Pneumococcal Vaccine Aged Out No long er eligible based on patient's age to complete this topic RSV Ped < 20 months Aged Out No longe r eligible based on patient's age to complete this topic Care Teams Manhole Stripper Relationship Specialty Start Date End Date Michael Peng DO [address] [place] [id number] PCP - General Internal Medicine 02/23/16
== END 2024-03-12 13:37 | disposition home or self-care (01) ==
PROVIDERS: PCP Internal Medicine; Visit Provider Psychiatry & Neurology Neurology
DX: G43.709 Chronic migraine without aura, not intractable, without status migrainosus (principal)
CPT/HCPCS: 64615

== ENCOUNTER 2024-03-15 13:29 | Outpatient (AMB) | payer OTHER, SELFPAY ==
--- NOTE | 2024-03-15 13:39 | MHC.OFFVIS ---
Vital Signs 03/15/24 13:40 Height 5 ft 5 in Weight 113 lb BMI 18.8 BP 82/60 L Blood Pressure Location Lt brachial Position Sitting Pulse 92 Pulse Source Pulse Oximeter Pulse Oximetry (%) 97 Oxygen Delivery Method Room Air Intake Visit Reasons: 6 month f/u- Intake Note: Inject on neck last week, feeling week lost back pain. Accompanied by: Self / Same As Patient Allergies bacitracin [From Neosporin ([id number])] Allergy (Unknown, Verified 03/15/24 13:43) Unknown neomycin [From Neosporin ([id number]-bahor)] Allergy (Unknown, Verified 03/15/24 13:43) Unknown polymyxin B [From Neosporin ([id number])] Allergy (Unknown, Verified 03/15/24 13:43) Unknown Sulfa (Sulfonamide Antibiotics) Allergy (Unknown, Verified 03/15/24 13:43) Unknown sulfadiazine Allergy (Unknown, Verified 03/15/24 13:43) Unknown adhesive Adverse Reaction (Unknown, Verified 03/15/24 13:43) Unknown Medication List - Last Reconciled 03/15/24 by CLIFTON Silvestre albuterol sulfate 90 mcg/actuation 0 mcg inhalation alprazolam 1 mg PO BID PRN 1 day amitriptyline 100 mg PO BEDTIME budesonide-formoterol 160-4.5 mcg/actuation 2 puffs inhalation BID hulzoddtbs-iwamsqdedrykh-qxtr 50-300-40 mg caps PO PRN carisoprodol 350 mg PO PRN celecoxib mg PO BID cyclobenzaprine 5 mg PO DAILY PRN cyclosporine 0.05% (Restasis) 1 drp ophthalmic (eye) Q12H diclofenac potassium 50 mg PO TID PRN 30 days escitalopram oxalate 5 mg PO DAILY [hair volume with apple extract PO DAILY] hydrocodone-acetaminophen 5-325 mg 1 tab PO Q4-6H PRN indomethacin 25 mg PO TID 30 days lorazepam 1 mg PO BID PRN magnesium oxide 400 mg PO DAILY melatonin 3 mg PO BEDTIME methocarbamol 750 - 1,500 mg PO TID PRN naproxen 500 mg PO BID PRN onabotulinumtoxinA (Botox) 200 units IM ONCE 12 weeks ondansetron 8 mg PO Q8H PRN 30 days ondansetron HCl 4 mg PO BID PRN oxycodone 5 mg PO BID PRN pantoprazole 40 mg PO DAILY riboflavin (vitamin B2) 400 mg PO DAILY simvastatin 20 mg PO BEDTIME tizanidine (Zanaflex) 4 mg PO DAILY PRN tramadol 50 mg PO BID PRN HPI Comments Details: 63-yr-old female presents for f/u visit of migraine and stabbing headache. Pt denies any significant interval medical changes. Her neck pain is somewhat better- just had cervical injections through [facility] last week. Tremor is stable- had a bout the other week- but had not noticed it in some time. Pt reports that the Botox for her chronic migraine has been very helpful. Pt reports she has 3 migraine days in the last month. She is surprised that she has not had a migraine during this recent heat wave. Last month, she had an uptick in migraine- had 3 migraine days in a row- but notes her last Botox appt was delayed to a scheduling issue. Overall, however the botox works very well, but can notice that it wearing off towards the end of the injection cycle. She continues to have episodes of sudden pressure pain a/w allodynia in the crown of the head, which can last 2 days. She continues to have bouts of random right frontal stabbing head pains. She has tried the Indomethacin 25mg or Diclofenac 50ng, but it prevents her from using her as needed tx for her back apin, such as Dual Action Advil (APAP 250mg/Ibuprofen 125mg per tab) or celebrex. She rarely using hydrocone-APAP. She is now taking food w/ NSAIDs. Baseline headache characteristics: Top of head, pressure. A/w photophobia, phonophobia, osmophobia. N/V, dizziness, may see black spots. No paresthesias, focal weakness, autonomic features. She is more prone to migraine in the spring and fall, as well as barometric changes. [facility] Medical History Chronic migraine without aura, not intractable, without status migrainosus Arthritis HLD (hyperlipidemia) Osteoporosis Asthma COPD (chronic obstructive pulmonary disease) Anemia Paresthesias Surgical History H/O left wrist surgery H/O: hysterectomy Hx of cholecystectomy Hx of appendectomy Family History Paternal Aunt Parkinsons disease Father Heart disease Mother Heart disease Hypertension Social History Alcohol intake: current Alcohol intake frequency: holidays/special occasions only Patient Tobacco Use Status: Current everyday Tobacco user Physical Exam Vital Signs: Last Vital Signs Pulse 92 03/15/24 13:40 BP 82/60 L 03/15/24 13:40 Pulse Ox 97 03/15/24 13:40 Oxygen Delivery Method Room Air 03/15/24 13:40 BMI result Body Mass Index 18.8 Const General: cooperative and no acute distress Orientation/consciousness: patient oriented x3 Resp Effort & Inspection: normal respiratory effort and able to speak in complete sentences Neuro Other: No visible rest or postural tremor. General: patient oriented x3 Cranial nerves: Yes CN's II-XII intact bilaterally Cognition (Neuro): normal cognition Psych Appearance: grossly normal Mental Status: mental status grossly normal Speech and movement: Normal speech and movement present Affect: normal affect Attitude: cooperative Assessment & Plan Assessment & Plan (1) Chronic migraine without aura: Code(s): G43.709 - Chronic migraine without aura, not intractable, without status migrainosus Category: Medical (2) Stabbing headache: Comment: w/o autonomic s/s Code(s): G44.85 - Primary stabbing headache Category: Medical Plan For stabbing headache: Hold order for Brain/head MRA- was deneid by insurance. Trial diclofenac 75 mg p.o. b.i.d. p.r.n. Hold Indomethacin 25mg po TID scheduled, as patient has not been able to successfully complete trial.. Trial oxcarbazepine 150 mg q.h.s. Check CBC and CMP in 1 month after starting oxcarbazepine- lab slip given to pt.. For acute migraine headache treatment: May continue Fioricet prn for now- use sparingly. Continue Zofran to 8mg ODT prn N?V May adjunct w/ Benadryl 25-50mg q 6-8hrs prn. Pt previously requested Fioicet w/ Codeine- however I am not comfortable resuming this as it would significantly increase pt's risk for medication adaptation headache. Previous acute migraine medication trials: Sumatriptan, Zolmitriptan, Eletriptan- caused racing heart rate. Acute migraine medication contraindications: None at this time. Future considerations- gepant- however would need to wean off Fioricet. ? For migraine headache prevention medication: Continue Riboflavin 400mg qam Continue Magnesium 400mg qhs Continue Amitriptyline 100mg qhs. Continue Botox 155 units IM q 12 weeks (CPT 65270), as pt is already having good clinical effect. Previous migraine prevention medication trials: Emgality- x's 2 months- had 2 week post-injection headache. Topiramate, Propranolol, Depakote, Gabapentin- ineffective. Duloxetine- not tolerated. Nortriptyline worsened headache. Migraine prevention medication contraindications: Would avoid Aimovig d/t h/o constipation. Monitor tremors clinically for now. ? F/u in 6 months or sooner prn. Orders: Orders Comprehensive Met. Panel Today D64.9 - Anemia, unspecified, G44.85 - Primary stabbing headache, I95.9 - Hypotension, unspecified Complete Blood Count Auto Diff Today D64.9 - Anemia, unspecified, G44.85 - Primary stabbing headache, I95.9 - Hypotension, unspecified Medications: New oxcarbazepine (Trileptal) 150 mg PO BEDTIME 30 days 30 tabs 3RF diclofenac sodium 75 mg PO BID 30 days PRN 60 tabs 1RF stabbing headache/back pain Discontinued diclofenac potassium do not take w/ Indomethacin Discontinued Reason: Doctor's Order 50 mg PO TID 30 days PRN 60 tabs 3RF pain indomethacin administer with food or milk. Do NOT take w/ Advil or Diclofenac or Celebrex. Discontinued Reason: Doctor's Order 25 mg PO TID 30 days 90 caps 1RF Coding Level of Care Code Est Pt Level 4 (40166) Diagnoses Chronic migraine without aura G43.709 Stabbing headache G44.85
[2024-03-15 13:40] VITALS: BP 82/60; PULSE 92; O2SAT 97; BMI 18.8
== END 2024-03-15 14:30 | disposition home or self-care (01) ==
PROVIDERS: PCP Internal Medicine; Visit Provider Nurse Practitioner Family
DX: G43.709 Chronic migraine without aura, not intractable, without status migrainosus (principal); G44.85 Primary stabbing headache
CPT/HCPCS: 99214